=== PATIENT | female | born 1980 | race Caucasian/White ===

== ENCOUNTER 2018-04-22 11:20 | Emergency (ER) | payer OTHER ==
[~2018-04-22] VITALS: Ht 172.7 cm; Wt 65.8 kg
[~2018-04-22 11:20] MED LIST: ALBIPROI INH; ALBU90OI INH; ALBUIS INH; AZIT250 PO; Amoxicillin500 MG PO; BENZ100A PO; Bactrim Ds Tab1 EACH PO; CEPH500 PO; CLAR500 PO; CRUTCH3 USE; ESCI20 PO; FISH1000 PO; FLUT110OIA INH; FOLI1 PO; Flagyl500 MG PO; GUAI120S1 PO; GUAI600T33 PO; HYDACE5 PO; HYDCOR1TC; IBUP400 PO; IBUP800 PO; LEVFLO500 PO; METH5 PO; METO10 PO; METO25 PO; MULVITB&C PO; Mucinex600 MG PO; NAPR500 PO; NITR100CA PO; Naprosyn375 MG PO; ONDA4ODT MM; OXYACE5T PO; PERM5TC TOP; PRED20 PO; PREN-16 PO; PROACE100 PO; PROCODE120 PO; Prednisone20 MG PO; QVAR7.3 G1 IH; RXHYDACE PO; RXONDA4ODT MM; RXOXYACE PO; RXPHEN200 PO; SPACE CHAMBER1 EACH MC; Ultram50 MG PO; Veetids 500500 MG PO; Vibramycin100 MG PO; ZOLP10 PO; ZOLP5 PO; Zithromax250 MG PO; [UNRECOGNIZED DRUG - REMARK]; [UNRECOGNIZED DRUG - REMARK]
[2018-04-22 12:27] LABS: BASOPHILS ABSOLUTE AUTO 0.02 K/mm3 (0.00-0.23); BASOPHILS PERCENT AUTO 0 % (0-2); EOSINOPHILS ABSOLUTE AUTO 0.04 K/mm3 (0.00-0.68); EOSINOPHILS PERCENT AUTO 0 % (0-6); Hematocrit 32.8 % (33.0-51.0); Hemoglobin 10.8 g/dL (11.5-16.0); IMMATURE GRAN ABSOLUTE AUTO 0.03 K/mm3 (0.00-0.10); IMMATURE GRAN PERCENT AUTO 0 % (0-1); LYMPHOCYTES ABSOLUTE AUTO 0.73 K/mm3 (0.84-5.20); LYMPHOCYTES PERCENT AUTO 8 % (21-46); MONOCYTES ABSOLUTE AUTO 0.76 K/mm3 (0.16-1.47); MONOCYTES PERCENT AUTO 8 % (4-13); Mean Corpuscular HGB 30.5 pg (26.0-34.0); Mean Corpuscular HGB Conc 32.9 g/dL (31.5-36.5); Mean Corpuscular Volume 93 fL (80-100); Mean Platelet Volume 9.6 fL (9.1-12.4); NEUTROPHILS ABSOLUTE AUTO 8.12 K/mm3 (1.96-9.15); NEUTROPHILS PERCENT AUTO 84 % (41-73); Platelet Count 190 K/mm3 (150-400); RDW Coefficient Variation 11.7 % (11.7-14.2); RDW Standard Deviation 39.5 fL (35.1-46.3); Red Blood Cell Count 3.54 M/mm3 (3.80-5.20)
[2018-04-22 12:44] LABS: Alanine Aminotransfer (ALT/SGP 16 U/L (12-78); Albumin, Blood 3.8 g/dL (3.4-5.0); Alk Phos 77 U/L (50-136); Anion Gap 7 mmol/L (6-16); Aspartate Aminotrans (AST/SGOT 11 U/L (12-37); Bilirubin, Total 0.4 mg/dL (0.1-1.0); Blood Urea Nitrogen 7 mg/dL (8-24); Bun/Creatinine Ratio 11.4 (12.0-20.0); CO2, Blood 28 mmol/L (21-32); Calcium, Blood 8.4 mg/dL (8.5-10.1); Chloride, Blood 103 mmol/L (98-108); Creatinine, Blood 0.62 mg/dL (0.40-1.00); Glomerular Filtration Rate >60 (60-); Glucose, Blood 89 mg/dL (70-99); Potassium, Blood 3.1 mmol/L (3.5-5.5); Sodium, Blood 138 mmol/L (136-145); Total Protein, Blood 7.8 g/dL (6.4-8.2)
[2018-04-22] MEDS ORDERED: Zithromax250 MG PO (13:02)
[2018-04-22] MEDS ORDERED: Prednisone20 MG PO (13:02)
== END 2018-04-22 14:33 | disposition home or self-care (01) ==
LOC: ER 11:20
PROVIDERS: Emergency Medicine
DX: J44.0 Chronic obstructive pulmonary disease with (acute) lower respiratory infection (principal); J18.9 Pneumonia, unspecified organism; F32.9 Major depressive disorder, single episode, unspecified; Z79.899 Other long term (current) drug therapy; Z79.51 Long term (current) use of inhaled steroids; Z87.891 Personal history of nicotine dependence; Z79.52 Long term (current) use of systemic steroids
CPT/HCPCS: 36415; 71046; 80053; 85025